=== PATIENT | male | born 1970 | race Caucasian/White ===

== ENCOUNTER 2016-08-21 19:55 | Emergency (ER) | payer OTHER ==
[~2016-08-21] VITALS: Ht 182.9 cm; Wt 79.5 kg
[~2016-08-21 19:55] MED LIST: TEMA30CA PO; TOPI-44 PO; TRAZ150T65 PO
[2016-08-21 20:00] VITALS: Ht 182.9 cm; Wt 79.5 kg
[2016-08-21] MEDS ORDERED: DIPHTH/TET/ACEL PERTUSS (ADULT) 0.5 ML VIAL IM* ONE (22:00)
[2016-08-21] MEDS ORDERED: HYDROCODONE/APAP (5/325) TAB PO ONE (22:00)
[2016-08-21] MEDS ORDERED: LIDOCAINE 2% (MDV) 20 ML INJ INJ ONE (22:00)
--- NOTE | 2016-08-21 22:42 | ERD ---
ER Documentation Chief Complaint Date/Time DATE: 08/21/16 TIME: 22:37 Chief Complaint abscess left thumb HPI This is a 45 year old male presenting to the emergency department complaining of tenderness and redness at the cuticle of left thumb for 1 week. Patient states it started smaller and getting bigger, states pain is 6/10. Admits to restricted range of motion due to pain ROS All systems reviewed and are negative except as per history of present illness. Medications Home Meds Reported Medications Trazodone Hcl* (Trazodone Hcl*) 150 Mg Tablet, 75 MG PO QHS, #30 TAB 09/16/15 Temazepam* (Temazepam*) 30 Mg Capsule, 30 MG PO HS Y for INSOMNIA, CAP 09/16/15 Topiramate* (Topiramate*) 25 Mg Tablet, PO BID, TAB 09/16/15 Allergies Allergies: Coded Allergies: No Known Allergy (Unverified , 09/16/15) PMhx/Soc History of Surgery: No Anesthesia Reaction: No Hx Neurological Disorder: No Hx Respiratory Disorders: No Hx Cardiac Disorders: No Hx Psychiatric Problems: Yes (DEPRESSION) Hx Miscellaneous Medical Probl: No Physical Exam Vitals Vital Signs Date Time Temp Pulse Resp B/P Pulse Ox O2 Delivery O2 Flow Rate FiO2 08/21/16 20:00 97.5 86 20 147/68 99 Physical Exam General: WD/WN, in no apparent distress, non-toxic appearing HENT: NC/AT Eyes: Conjunctiva normal Neck: Supple Pulm: Clear to auscultation, normal labored breathing; no wheezing/rales/ rhonchi heard CV: Good capillary refill GI: Non-distended, no guarding Back: No masses Ext: No clubbing, cyanosis, or edema Neuro: Moves on all fours Skin: erythema fluctuance and swelling at base of left thumb nail that extended downward cutaneous DIP Normal turgor, color, and temperature. No ulcerations or rashes noted. Psych: Normal mood Results 24 hrs Current Medications Medications (Trade) Dose Ordered Sig/Heena Route PRN Reason Start Time Stop Time Status Last Admin Dose Admin Lidocaine (Xylocaine 2% (Mdv) 20 ml) 20 ml ONCE ONCE INJ 08/21/16 22:00 08/21/16 22:01 DC Diphtheria/ Tetanus/Acell Pertussis (Adacel) 0.5 ml ONCE ONCE IM* 08/21/16 22:00 08/21/16 22:01 DC Acetaminophen/ Hydrocodone Bitart ([place] (5/325)) 2 tab ONCE ONCE PO 08/21/16 22:00 08/21/16 22:01 DC Procedures/MDM This is a 45-year-old male presenting to the emergency department complaining of a paronychia with abscess on the left thumb. On examination this paronychia was suitable for incision and drainage. In the ED patient was given [place], Tdap and was prepared to do an incision and drainage. Patient told a instructional support technician that he does not want to wait any longer and states that he wants to go to different location due to the long wait time, patient eloped against medical advice. Departure Diagnosis: Primary Impression: Paronychia Additional Impression: Abscess Condition: GRAHAM Baez PA-C Aug 21, 2016 22:42
== END 2016-08-21 22:43 | disposition left against medical advice (07) ==
LOC: FTE 19:55
DX: L03.012 Cellulitis of left finger (principal); L02.512 Cutaneous abscess of left hand
CPT/HCPCS: 99282